=== PATIENT | male | born 1970 | race Caucasian/White ===

== ENCOUNTER 2017-06-06 09:10 | Emergency (ER) | payer OTHER ==
[~2017-06-06] VITALS: Ht 185.4 cm; Wt 68.0 kg
[~2017-06-06 09:10] MED LIST: ALLEGRA ALLERG180 M1 PO; DAILY VALUE1 EACH PO; KEFLEX500 M1 PO; OMEPRAZOLE20 M2 PO
[2017-06-06 09:13] VITALS: BP 119/78
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
[2017-06-06] MEDS ORDERED: CYCLOBENZAPRINE10 M1 PO (09:44)
[2017-06-06] MEDS ORDERED: IBUPROFEN800 M1 PO (09:44)
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
== END 2017-06-06 11:08 ==
LOC: ERH 09:10
DX: S16.1XXA Strain of muscle, fascia and tendon at neck level, initial encounter (principal); S29.012A Strain of muscle and tendon of back wall of thorax, initial encounter; R51 Headache; V49.40XA Driver injured in collision with unspecified motor vehicles in traffic accident, initial encounter; Y92.9 Unspecified place or not applicable